=== PATIENT | female | born 1965 | race Caucasian/White ===

== ENCOUNTER → 2023-05-26 14:58 | Outpatient (REF) | payer BC, SELFPAY | LOC: MRI 3T 14:58 | PROVIDERS: ATTENDING PHYSICIAN Surgery; FAMILY PHYSICIAN Internal Medicine | DX: N63.20 Unspecified lump in the left breast, unspecified quadrant (principal) | CPT/HCPCS: 77049; A9585 ==

== ENCOUNTER → 2024-02-29 08:35 | Outpatient (REF) | payer OTHER, SELFPAY | LOC: HWRAD 08:35 | PROVIDERS: ATTENDING PHYSICIAN Internal Medicine Endocrinology, Diabetes & Metabolism; FAMILY PHYSICIAN Internal Medicine | DX: Z78.0 Asymptomatic menopausal state (principal); M81.0 Age-related osteoporosis without current pathological fracture; E55.9 Vitamin D deficiency, unspecified; R82.994 Hypercalciuria | CPT/HCPCS: 77080 ==

== ENCOUNTER → 2024-03-14 14:20 | Outpatient (REF) | payer OTHER, SELFPAY | LOC: HWRAD 14:20 | PROVIDERS: ATTENDING PHYSICIAN Internal Medicine | DX: M25.521 Pain in right elbow (principal) | CPT/HCPCS: 73080 ==